=== PATIENT | male | born 1985 | race Caucasian/White ===

== ENCOUNTER 2018-03-23 19:26 | Emergency (ER) | payer MEDICAID ==
[~2018-03-23] VITALS: Ht 182.9 cm; Wt 97.5 kg
[2018-03-23 19:29] VITALS: BP_SYST 144
[2018-03-23 20:54] VITALS: BP_SYST 137
== END 2018-03-23 20:54 ==
LOC: SED 19:26
DX: R11.10 Vomiting, unspecified (principal); R50.9 Fever, unspecified
CPT/HCPCS: 99283